=== PATIENT | female | born 1980 | race Caucasian/White ===

== ENCOUNTER 2022-02-16 10:40 | Emergency (ER) | payer OTHER ==
[~2022-02-16] VITALS: Ht 162.6 cm; Wt 80.0 kg
[2022-02-16 10:53] VITALS: BP 133/82
[2022-02-16] MEDS ORDERED: cyclobenzaprine 10mg tablet PO ONE (12:00)
[2022-02-16] MEDS ORDERED: ketorolac trometh inj. 60 MG/2 ML VIAL IM ONE (12:00)
[2022-02-16] MEDS ORDERED: CYCL-1 PO (12:08)
[2022-02-16] MEDS ORDERED: IBUP-1986 PO (12:08)
== END 2022-02-16 13:01 | disposition home or self-care (01) ==
LOC: ER 10:42
DX: S69.91XA Unspecified injury of right wrist, hand and finger(s), initial encounter (principal); S16.1XXA Strain of muscle, fascia and tendon at neck level, initial encounter; V87.7XXA Person injured in collision between other specified motor vehicles (traffic), initial encounter; Y93.89 Activity, other specified; Y92.89 Other specified places as the place of occurrence of the external cause; Y99.8 Other external cause status
CPT/HCPCS: 73130; 96372; 99283; J1885